=== PATIENT | female | born 2005 | race Caucasian/White ===

== ENCOUNTER 2023-01-28 13:37 | Emergency (ER) | payer OTHER, MEDICAID, SELFPAY ==
--- NOTE | ~2023-01-28 | XR_ITS ---
EXAMINATION: XR CHEST CLINICAL INFORMATION: Syncope, seizure. COMPARISON: None available. TECHNIQUE: 2 views of the chest were obtained. FINDINGS: Lungs are well-expanded and clear acute process. The heart size and pulmonary vascularity is normal. Mild dextroscoliosis. XR/XR chest 2V IMPRESSION: Unremarkable chest examination.
--- NOTE | ~2023-01-28 | CT_ITS ---
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 Coronal and sagittal reformats were obtained at the acquisition workstation. This CT examination was performed using dose optimization techniques as appropriate, variously including the following: * Automated exposure control * Adjustment of mA and/or kV according to patient size (this includes techniques or standardized protocols for targeted exams where dose is matched to indication/reason for exam; i.e. extremities or head) * Use of iterative reconstruction technique DLP: 249 mGy-cm FINDINGS: HEAD: There is no evidence of acute intracranial hemorrhage or territorial infarction. Abraham to white matter differentiation is well preserved. No abnormal mass effect or midline shift is seen. No extra-axial fluid collections are identified. No hydrocephalus. No significant volume loss. There is no abnormal attenuation within the brain parenchyma. The cerebellar tonsils are well positioned. No acute osseous or soft tissue abnormality. Visualized portions of the orbits are unremarkable. The mastoid air cells and visualized portions of the paranasal sinuses are well aerated. CERVICAL SPINE: No evidence of acute fracture or traumatic subluxation of the cervical spine. There is straightening of the normal cervical curvature with otherwise maintained sagittal alignment. Vertebral body heights and intervertebral disc spaces are maintained. The atlantoaxial and atlantooccipital articulations are intact. No prevertebral soft tissue swelling. There is no cervical lymphadenopathy. The visualized thyroid gland is unremarkable. The visualized lung apices are clear. CT/CT head/brain wo IV con IMPRESSION: No acute intracranial pathology. No acute osseous abnormality within the cervical spine.
--- NOTE | ~2023-01-28 | CT_ITS ---
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 Coronal and sagittal reformats were obtained at the acquisition workstation. This CT examination was performed using dose optimization techniques as appropriate, variously including the following: * Automated exposure control * Adjustment of mA and/or kV according to patient size (this includes techniques or standardized protocols for targeted exams where dose is matched to indication/reason for exam; i.e. extremities or head) * Use of iterative reconstruction technique DLP: 249 mGy-cm FINDINGS: HEAD: There is no evidence of acute intracranial hemorrhage or territorial infarction. Abraham to white matter differentiation is well preserved. No abnormal mass effect or midline shift is seen. No extra-axial fluid collections are identified. No hydrocephalus. No significant volume loss. There is no abnormal attenuation within the brain parenchyma. The cerebellar tonsils are well positioned. No acute osseous or soft tissue abnormality. Visualized portions of the orbits are unremarkable. The mastoid air cells and visualized portions of the paranasal sinuses are well aerated. CERVICAL SPINE: No evidence of acute fracture or traumatic subluxation of the cervical spine. There is straightening of the normal cervical curvature with otherwise maintained sagittal alignment. Vertebral body heights and intervertebral disc spaces are maintained. The atlantoaxial and atlantooccipital articulations are intact. No prevertebral soft tissue swelling. There is no cervical lymphadenopathy. The visualized thyroid gland is unremarkable. The visualized lung apices are clear. CT/CT cervical spine wo IV con IMPRESSION: No acute intracranial pathology. No acute osseous abnormality within the cervical spine.
[2023-01-28 13:49] VITALS: BP 138/80; PULSE 74; RESP 18; TEMP 36.9; O2SAT 98; BMI 19.9
--- NOTE | 2023-01-28 13:52 | ED_ITS ---
HPI - Syncope General Chief Complaint: Syncope <GABI Saul - Last Filed: 01/28/23 13:55> Stated Complaint: seizure/ faint <GABI Saul - Last Filed: 01/28/23 13:55> Time Seen by Provider: 01/28/23 17:16 <GABI Saul - Last Filed: 01/28/23 13:55> Source: patient, RN notes reviewed and old records reviewed <Eduardo Thomas - Last Filed: 01/28/23 17:25> Mode of arrival: ambulatory <Eduardo Thomas - Last Filed: 01/28/23 17:25> Limitations: no limitations <Eduardo Thomas - Last Filed: 01/28/23 17:25> History of Present Illness HPI narrative: 17-year-old female who denies any past medical history presents for evaluation of ?I fainted. ? Patient was at [employer] standing in line. She reports that she felt lightheaded and then ?passed out. ? She fell to the ground and was reportedly ?out of it for about 5 minutes. ? There was some mention of whether not there was shaking or seizure-like activity The patient reports that she has had 2 syncopal episodes in the past ?when it was hot out and was standing for long time. ? She is requesting discharge at this time and states that she feels much better <Eduardo Thomas - Last Filed: 01/28/23 17:25> Related Data Allergies/Adverse Reactions: Allergies Allergy/AdvReac Type Severity Reaction Status Date / Time No Known Allergies Allergy Verified 01/28/23 13:53 <GABI Saul - Last Filed: 01/28/23 13:55> Review of Systems Constitutional: Constitutional: Reports as per HPI, Denies chills, Denies fatigue, Denies fever(s) and Denies headache(s) <Eduardo Thomas - Last Filed: 01/28/23 17:25> ENT: Denies headache(s) <Eduardo Thomas - Last Filed: 01/28/23 17:25> Cardiovascular: Cardiovascular: Denies chest pain, Reports syncope and Denies dyspnea <Eduardo Thomas - Last Filed: 01/28/23 17:25> Respiratory: Respiratory: Denies cough and Denies dyspnea <Eduardo Thomas - Last Filed: 01/28/23 17:25> Gastrointestinal: Gastrointestinal: Denies abdominal pain, Denies constipation and Denies vomiting <Eduardo Thomas - Last Filed: 01/28/23 17:25> Genitourinary: Genitourinary: Denies dysuria <Eduardo Thomas - Last Filed: 01/28/23 17:25> Neurologic: Reports syncope, Denies headache(s) and Denies focal weakness <Eduardo Thomas - Last Filed: 01/28/23 17:25> Endocrine: Endocrine: Denies fatigue <Eduardo Thomas - Last Filed: 01/28/23 17:25> PMFSH Social History Social History: Social History Advance Directives: No Advance Directives Information Provided: No <GABI Saul - Last Filed: 01/28/23 13:55> Physical Exam Vital Signs: Vital Signs: Last Vital Signs Temp 98.4 F 01/28/23 17:19 Pulse 100 01/28/23 17:19 Resp 16 01/28/23 17:19 BP 118/64 01/28/23 17:19 Pulse Ox 98 01/28/23 17:19 O2 Del Method Room Air 01/28/23 17:19 BMI result Body Mass Index 19.9 <GABI Saul - Last Filed: 01/28/23 13:55> Vital Signs: Last Vital Signs Temp 98.4 F 01/28/23 17:19 Pulse 100 01/28/23 17:19 Resp 16 01/28/23 17:19 BP 118/64 01/28/23 17:19 Pulse Ox 98 01/28/23 17:19 O2 Del Method Room Air 01/28/23 17:19 BMI result Body Mass Index 19.9 <Eduardo Thomas - Last Filed: 01/28/23 17:25> Const: General: healthy appearing, comfortable, no acute distress, alert and awake <Eduardo Thomas - Last Filed: 01/28/23 17:25> Nutritional Appearance: well nourished <Eduardo Thomas - Last Filed: 01/28/23 17:25> Orientation/consciousness: patient oriented x3 < - Last Filed: 01/28/23 17:25> HEENT: Head: Yes normocephalic and Yes atraumatic < - Last Filed: 01/28/23 17:25> Throat: Yes posterior oropharynx normal < Last Filed: 01/28/23 17:25> Eyes: Eyelids: Yes eyelids normal < - Last Filed: 01/28/23 17:25> Conjunctivae: conjunctivae normal < - Last Filed: 01/28/23 17:25> Sclerae: sclerae normal < - Last Filed: 01/28/23 17:25> Corneas: corneas normal < - Last Filed: 01/28/23 17:25> Pupils: Equal, round and reactive pupils present < - Last Filed: 01/28/23 17:25> EOM: EOMs intact bilaterally < - Last Filed: 01/28/23 17:25> Neck: Neck: Yes full ROM < - Last Filed: 01/28/23 17:25> Resp: Effort & Inspection: normal respiratory effort, able to speak in complete sentences, no audible wheezes and not labored < Last Filed: 01/28/23 17:25> Auscultation: clear to auscultation bilaterally < - Last Filed: 01/28/23 17:25> Cardio: Rate: regular rate < - Last Filed: 01/28/23 17:25> Rhythm: regular rhythm <Eduardo [employer] - Last Filed: 01/28/23 17:25> GI: Inspection: No distended <Eduardo [employer] - Last Filed: 01/28/23 17:25> Palpation (GI): Soft to palpation, not firm, nontender, no guarding and not rigid <[employer]oy - Last Filed: 01/28/23 17:25> Auscultation: normoactive bowel sounds <[employer] - Last Filed: 01/28/23 17:25> Skin: General skin exam: no rashes or lesions noted and elasticity normal <Eduardo Thomas - Last Filed: 01/28/23 17:25> Neuro: General: patient oriented x3 <Eduardo Thomas - Last Filed: 01/28/23 17:25> Cranial nerves: Yes CN's II-XII intact bilaterally, Yes Equal, round and reactive pupils present and Yes Bilaterally intact EOM present <Eduardo Thomas - Last Filed: 01/28/23 17:25> Cognition (Neuro): normal cognition <Eduardo Thomas - Last Filed: 01/28/23 17:25> Course Course Course Narrative: BEAU-13:55PM - 17yoF with No Sig PMHx who is presenting to the ER with sister at bedside with complaints of a possible seizure and a syncopal episode that occurred prior to arrival while she was standing in line for ride at [employer] with a friend. She reports that she started getting a headache on the frontal aspect of her head a nd then all she scene was red and she woke up on the ground with her friend and the nurse that was nearby that helps her. She reports that it lasted approximately 5 minutes. She is unsure if she was shaking. She did not bite her tongue and she did not have any urinary bowel incontinence. Reports that this happened in the past although she has never been worked up for seizures although she reports that she believes she has been having seizures. She reports she continues to have a frontal headache otherwise denies any other symptoms related to this. Her last menstrual period was last month in the beginning of December she reports she is due for. Although her periods are usually regular. She does not believe she is at this time. She denies any other symptoms complaints or concerns at this time. Denies taking any medications. She reports she does not have a primary care provider Plan: Labs, EKG, chest x-ray, CT scan of brain/cervical spine and UA ordered at this time patient will be sent back to the waiting room to be evaluated in the ED. <GABI Saul - Last Filed: 01/28/23 13:55> Medical Decision Making Medical Decision Making MDM Narrative: 17-year-old female presents for evaluation of what sounds like a syncopal episode. Her vital signs are stable, workup was without any significant findings. The patient around chest pain, doubt cardiac arrhythmia. EKG is sinus rhythm with a rate of 84 beats per minute. No ST segment elevation changes. Labs are without significant abnormality. There is a very mild anemi a. Not significant enough to cause the patient's symptoms. <Eduardo Thomas - Last Filed: 01/28/23 17:25> Differential Diagnosis Anemia Syncope Seizure Seizure-like disorder Pseudo-seizure Near-syncope Dehydration Orthostasis <Eduardo Thomas - Last Filed: 01/28/23 17:25> Lab Data Result Diagrams: 01/28/23 15:01 01/28/23 15:01 <GABI Saul - Last Filed: 01/28/23 13:55> Labs: Lab Results 01/28/23 01/28/23 01/28/23 Range/Units 15:01 15:01 15:01 WBC 6.3 (4.8-10.8) X10*3/uL RBC 4.73 (4.20-5.50) X10*6/uL Hgb 11.7 L (12.0-16.0) g/dl Hct 37.6 (37.0-47.0) % MCV 79.5 L (80.0-98.0) fL MCH 24.7 L (27.0-33.0) pg MCHC 31.1 (31.0-35.0) g/dl RDW 13.8 (11.0-16.0) % Plt Count 353 (160-400) X10*3/uL MPV 10.3 (9.4-12.3) fL Immature Gran % (Auto) 0.3 (0.0-0.4) % Neut % (Auto) 71.3 (45-73) % Lymph % (Auto) 19.9 L (20-40) % [place] % (Auto) 7.9 (2-11) % Eos % (Auto) 0.3 (0-4) % Baso % (Auto) 0.3 (0-2) % Lymph # (Auto) 1.3 (1.2-4.9) X10*3/uL [place] # (Auto) 0.5 (0.1-1.2) X10*3/uL Eos # (Auto) 0.0 (0.0-0.4) X10*3/uL Baso # (Auto) 0.0 (0.0-0.2) X10*3/uL Abs Immat Gran (auto) 0.02 (0.00-0.03) X10*3/uL Absolute Neuts (auto) 4.5 (2.0-8.3) x10*3/uL Absolute Nucleated RBC 0.000 (0.0-0.012) X10*3/uL Nucleated RBC % (auto) 0.0 (0.0-0.2) /100WBC PT 14.1 H (10.0-13.1) SEC INR 1.2 H (0.9-1.1) Sodium 140 (135-145) mmol/L Potassium 4.1 (3.3-5.1) mmol/L Chloride 105 (96-108) mmol/L Carbon Dioxide 24 (22-29) mmol/L Anion Gap 15 (12-20) BUN 7 L (9-16) mg/dL Creatinine 0.73 (0.5-1.4) mg/dL Estim Creat Clear Calc 96.6 Estimated GFR > 60 Random Glucose 76 (60-115) mg/dL Calcium 9.4 (8.4-10.2) mg/dL Magnesium 1.9 (1.6-2.6) mg/dL Total Bilirubin 1.1 H (0.0-1.0) mg/dL AST 15 (5-31) U/L ALT 9 (0-31) U/L Alkaline Phosphatase 63 (39-117) U/L Troponin I High Sens (<3.5-17.0) ng/L Total Protein 7.3 (6.5-8.0) g/dL Albumin 4.5 (3.5-5.0) g/dL Lipase 35 (8-78) U/L Beta HCG, Quant mIU/mL Urine Color Urine Appearance Urine pH (5.0-9.0) Ur Specific [place] (1.005-1.025) Urine Protein (Neg-Trace) mg/dL Urine Glucose (UA) (Negative) mg/dL Urine Ketones (Negative) mg/dL Urine Blood (Negative) Urine Nitrite (Negative) Ur Leukocyte Esterase (Negative) Urine Opiates Screen (Not Detect) Urine Fentanyl Screen (Not Detect) Ur Barbiturates Screen (Not Detect) Ur Phencyclidine Scrn (Not Detect) Ur Amphetamines Screen (Not Detect) U Benzodiazepines Scrn (Not Detect) Urine Cocaine Screen (Not Detect) U Marijuana (THC) Screen (Not Detect) Ethyl Alcohol < 10 mg/dL Influenza Type A (PCR) (Negative) Influenza Type B (PCR) (Negative) RSV RNA Qual (PCR) (Negative) SARS-CoV-2 RNA (RT-PCR) (Negative) 01/28/23 01/28/23 01/28/23 Range/Units 15:01 15:01 15:01 WBC (4.8-10.8) X10*3/uL RBC (4.20-5.50) X10*6/uL Hgb (12.0-16.0) g/dl Hct (37.0-47.0) % MCV (80.0-98.0) fL MCH (27.0-33.0) pg MCHC (31.0-35.0) g/dl RDW (11.0-16.0) % Plt Count (160-400) X10*3/uL MPV (9.4-12.3) fL Immature Gran % (Auto) (0.0-0.4) % Neut % (Auto) (45-73) % Lymph % (Auto) (20-40) % [place] % (Auto) (2-11) % Eos % (Auto) (0-4) % Baso % (Auto) (0-2) % Lymph # (Auto) (1.2-4.9) X10*3/uL [place] # (Auto) (0.1-1.2) X10*3/uL Eos # (Auto) (0.0-0.4) X10*3/uL Baso # (Auto) (0.0-0.2) X10*3/uL Abs Immat Gran (auto) (0.00-0.03) X10*3/uL Absolute Neuts (auto) (2.0-8.3) x10*3/uL Absolute Nucleated RBC (0.0-0.012) X10*3/uL Nucleated RBC % (auto) (0.0-0.2) /100WBC PT (10.0-13.1) SEC INR (0.9-1.1) Sodium (135-145) mmol/L Potassium (3.3-5.1) mmol/L Chloride (96-108) mmol/L Carbon Dioxide (22-29) mmol/L Anion Gap (12-20) BUN (9-16) mg/dL Creatinine (0.5-1.4) mg/dL Estim Creat Clear Calc Estimated GFR Random Glucose (60-115) mg/dL Calcium (8.4-10.2) mg/dL Magnesium (1.6-2.6) mg/dL Total Bilirubin (0.0-1.0) mg/dL AST (5-31) U/L ALT (0-31) U/L Alkaline Phosphatase (39-117) U/L Troponin I High Sens < 2.7 (<3.5-17.0) ng/L Total Protein (6.5-8.0) g/dL Albumin (3.5-5.0) g/dL Lipase (8-78) U/L Beta HCG, Quant < 2 mIU/mL Urine Color Urine Appearance Urine pH (5.0-9.0) Ur Specific [place] (1.005-1.025) Urine Protein (Neg-Trace) mg/dL Urine Glucose (UA) (Negative) mg/dL Urine Ketones (Negative) mg/dL Urine Blood (Negative) Urine Nitrite (Negative) Ur Leukocyte Esterase (Negative) Urine Opiates Screen (Not Detect) Urine Fentanyl Screen (Not Detect) Ur Barbiturates Screen (Not Detect) Ur Phencyclidine Scrn (Not Detect) Ur Amphetamines Screen (Not Detect) U Benzodiazepines Scrn (Not Detect) Urine Cocaine Screen (Not Detect) U Marijuana (THC) Screen (Not Detect) Ethyl Alcohol mg/dL Influenza Type A (PCR) NEGATIVE (Negative) Influenza Type B (PCR) NEGATIVE (Negative) RSV RNA Qual (PCR) NEGATIVE (Negative) SARS-CoV-2 RNA (RT-PCR) NEGATIVE (Negative) 01/28/23 01/28/23 Range/Units 15:01 15:01 WBC (4.8-10.8) X10*3/uL RBC (4.20-5.50) X10*6/uL Hgb (12.0-16.0) g/dl Hct (37.0-47.0) % MCV (80.0-98.0) fL MCH (27.0-33.0) pg MCHC (31.0-35.0) g/dl RDW (11.0-16.0) % Plt Count (160-400) X10*3/uL MPV (9.4-12.3) fL Immature Gran % (Auto) (0.0-0.4) % Neut % (Auto) (45-73) % Lymph % (Auto) (20-40) % [place] % (Auto) (2-11) % Eos % (Auto) (0-4) % Baso % (Auto) (0-2) % Lymph # (Auto) (1.2-4.9) X10*3/uL [place] # (Auto) (0.1-1.2) X10*3/uL Eos # (Auto) (0.0-0.4) X10*3/uL Baso # (Auto) (0.0-0.2) X10*3/uL Abs Immat Gran (auto) (0.00-0.03) X10*3/uL Absolute Neuts (auto) (2.0-8.3) x10*3/uL Absolute Nucleated RBC (0.0-0.012) X10*3/uL Nucleated RBC % (auto) (0.0-0.2) /100WBC PT (10.0-13.1) SEC INR (0.9-1.1) Sodium (135-145) mmol/L Potassium (3.3-5.1) mmol/L Chloride (96-108) mmol/L Carbon Dioxide (22-29) mmol/L Anion Gap (12-20) BUN (9-16) mg/dL Creatinine (0.5-1.4) mg/dL Estim Creat Clear Calc Estimated GFR Random Glucose (60-115) mg/dL Calcium (8.4-10.2) mg/dL Magnesium (1.6-2.6) mg/dL Total Bilirubin (0.0-1.0) mg/dL AST (5-31) U/L ALT (0-31) U/L Alkaline Phosphatase (39-117) U/L Troponin I High Sens (<3.5-17.0) ng/L Total Protein (6.5-8.0) g/dL Albumin (3.5-5.0) g/dL Lipase (8-78) U/L Beta HCG, Quant mIU/mL Urine Color Yellow Urine Appearance Clear Urine pH 8.0 (5.0-9.0) Ur Specific [place] 1.010 (1.005-1.025) Urine Protein Trace (Neg-Trace) mg/dL Urine Glucose (UA) Negative (Negative) mg/dL Urine Ketones Negative (Negative) mg/dL Urine Blood Negative (Negative) Urine Nitrite Negative (Negative) Ur Leukocyte Esterase Negative (Negative) Urine Opiates Screen Not Detected (Not Detect) Urine Fentanyl Screen Not Detected (Not Detect) Ur Barbiturates Screen Not Detected (Not Detect) Ur Phencyclidine Scrn Not Detected (Not Detect) Ur Amphetamines Screen Not Detected (Not Detect) U Benzodiazepines Scrn Not Detected (Not Detect) Urine Cocaine Screen Not Detected (Not Detect) U Marijuana (THC) Screen POSITIVE H (Not Detect) Ethyl Alcohol mg/dL Influenza Type A (PCR) (Negative) Influenza Type B (PCR) (Negative) RSV RNA Qual (PCR) (Negative) SARS-CoV-2 RNA (RT-PCR) (Negative) <GABI Saul - Last Filed: 01/28/23 13:55> Lab Results 01/28/23 01/28/23 01/28/23 Range/Units 15:01 15:01 15:01 WBC 6.3 (4.8-10.8) X10*3/uL RBC 4.73 (4.20-5.50) X10*6/uL Hgb 11.7 L (12.0-16.0) g/dl Hct 37.6 (37.0-47.0) % MCV 79.5 L (80.0-98.0) fL MCH 24.7 L (27.0-33.0) pg MCHC 31.1 (31.0-35.0) g/dl RDW 13.8 (11.0-16.0) % Plt Count 353 (160-400) X10*3/uL MPV 10.3 (9.4-12.3) fL Immature Gran % (Auto) 0.3 (0.0-0.4) % Neut % (Auto) 71.3 (45-73) % Lymph % (Auto) 19.9 L (20-40) % [place] % (Auto) 7.9 (2-11) % Eos % (Auto) 0.3 (0-4) % Baso % (Auto) 0.3 (0-2) % Lymph # (Auto) 1.3 (1.2-4.9) X10*3/uL [place] # (Auto) 0.5 (0.1-1.2) X10*3/uL Eos # (Auto) 0.0 (0.0-0.4) X10*3/uL Baso # (Auto) 0.0 (0.0-0.2) X10*3/uL Abs Immat Gran (auto) 0.02 (0.00-0.03) X10*3/uL Absolute Neuts (auto) 4.5 (2.0-8.3) x10*3/uL Absolute Nucleated RBC 0.000 (0.0-0.012) X10*3/uL Nucleated RBC % (auto) 0.0 (0.0-0.2) /100WBC PT 14.1 H (10.0-13.1) SEC INR 1.2 H (0.9-1.1) Sodium 140 (135-145) mmol/L Potassium 4.1 (3.3-5.1) mmol/L Chloride 105 (96-108) mmol/L Carbon Dioxide 24 (22-29) mmol/L Anion Gap 15 (12-20) BUN 7 L (9-16) mg/dL Creatinine 0.73 (0.5-1.4) mg/dL Estim Creat Clear Calc 96.6 Estimated GFR > 60 Random Glucose 76 (60-115) mg/dL Calcium 9.4 (8.4-10.2) mg/dL Magnesium 1.9 (1.6-2.6) mg/dL Total Bilirubin 1.1 H (0.0-1.0) mg/dL AST 15 (5-31) U/L ALT 9 (0-31) U/L Alkaline Phosphatase 63 (39-117) U/L Troponin I High Sens (<3.5-17.0) ng/L Total Protein 7.3 (6.5-8.0) g/dL Albumin 4.5 (3.5-5.0) g/dL Lipase 35 (8-78) U/L Beta HCG, Quant mIU/mL Urine Color Urine Appearance Urine pH (5.0-9.0) Ur Specific [place] (1.005-1.025) Urine Protein (Neg-Trace) mg/dL Urine Glucose (UA) (Negative) mg/dL Urine Ketones (Negative) mg/dL Urine Blood (Negative) Urine Nitrite (Negative) Ur Leukocyte Esterase (Negative) Urine Opiates Screen (Not Detect) Urine Fentanyl Screen (Not Detect) Ur Barbiturates Screen (Not Detect) Ur Phencyclidine Scrn (Not Detect) Ur Amphetamines Screen (Not Detect) U Benzodiazepines Scrn (Not Detect) Urine Cocaine Screen (Not Detect) U Marijuana (THC) Screen (Not Detect) Ethyl Alcohol < 10 mg/dL Influenza Type A (PCR) (Negative) Influenza Type B (PCR) (Negative) RSV RNA Qual (PCR) (Negative) SARS-CoV-2 RNA (RT-PCR) (Negative) 01/28/23 01/28/23 01/28/23 Range/Units 15:01 15:01 15:01 WBC (4.8-10.8) X10*3/uL RBC (4.20-5.50) X10*6/uL Hgb (12.0-16.0) g/dl Hct (37.0-47.0) % MCV (80.0-98.0) fL MCH (27.0-33.0) pg MCHC (31.0-35.0) g/dl RDW (11.0-16.0) % Plt Count (160-400) X10*3/uL MPV (9.4-12.3) fL Immature Gran % (Auto) (0.0-0.4) % Neut % (Auto) (45-73) % Lymph % (Auto) (20-40) % [place] % (Auto) (2-11) % Eos % (Auto) (0-4) % Baso % (Auto) (0-2) % Lymph # (Auto) (1.2-4.9) X10*3/uL [place] # (Auto) (0.1-1.2) X10*3/uL Eos # (Auto) (0.0-0.4) X10*3/uL Baso # (Auto) (0.0-0.2) X10*3/uL Abs Immat Gran (auto) (0.00-0.03) X10*3/uL Absolute Neuts (auto) (2.0-8.3) x10*3/uL Absolute Nucleated RBC (0.0-0.012) X10*3/uL Nucleated RBC % (auto) (0.0-0.2) /100WBC PT (10.0-13.1) SEC INR (0.9-1.1) Sodium (135-145) mmol/L Potassium (3.3-5.1) mmol/L Chloride (96-108) mmol/L Carbon Dioxide (22-29) mmol/L Anion Gap (12-20) BUN (9-16) mg/dL Creatinine (0.5-1.4) mg/dL Estim Creat Clear Calc Estimated GFR Random Glucose (60-115) mg/dL Calcium (8.4-10.2) mg/dL Magnesium (1.6-2.6) mg/dL Total Bilirubin (0.0-1.0) mg/dL AST (5-31) U/L ALT (0-31) U/L Alkaline Phosphatase (39-117) U/L Troponin I High Sens < 2.7 (<3.5-17.0) ng/L Total Protein (6.5-8.0) g/dL Albumin (3.5-5.0) g/dL Lipase (8-78) U/L Beta HCG, Quant < 2 mIU/mL Urine Color Urine Appearance Urine pH (5.0-9.0) Ur Specific [place] (1.005-1.025) Urine Protein (Neg-Trace) mg/dL Urine Glucose (UA) (Negative) mg/dL Urine Ketones (Negative) mg/dL Urine Blood (Negative) Urine Nitrite (Negative) Ur Leukocyte Esterase (Negative) Urine Opiates Screen (Not Detect) Urine Fentanyl Screen (Not Detect) Ur Barbiturates Screen (Not Detect) Ur Phencyclidine Scrn (Not Detect) Ur Amphetamines Screen (Not Detect) U Benzodiazepines Scrn (Not Detect) Urine Cocaine Screen (Not Detect) U Marijuana (THC) Screen (Not Detect) Ethyl Alcohol mg/dL Influenza Type A (PCR) NEGATIVE (Negative) Influenza Type B (PCR) NEGATIVE (Negative) RSV RNA Qual (PCR) NEGATIVE (Negative) SARS-CoV-2 RNA (RT-PCR) NEGATIVE (Negative) 01/28/23 01/28/23 Range/Units 15:01 15:01 WBC (4.8-10.8) X10*3/uL RBC (4.20-5.50) X10*6/uL Hgb (12.0-16.0) g/dl Hct (37.0-47.0) % MCV (80.0-98.0) fL MCH (27.0-33.0) pg MCHC (31.0-35.0) g/dl RDW (11.0-16.0) % Plt Count (160-400) X10*3/uL MPV (9.4-12.3) fL Immature Gran % (Auto) (0.0-0.4) % Neut % (Auto) (45-73) % Lymph % (Auto) (20-40) % [place] % (Auto) (2-11) % Eos % (Auto) (0-4) % Baso % (Auto) (0-2) % Lymph # (Auto) (1.2-4.9) X10*3/uL [place] # (Auto) (0.1-1.2) X10*3/uL Eos # (Auto) (0.0-0.4) X10*3/uL Baso # (Auto) (0.0-0.2) X10*3/uL Abs Immat Gran (auto) (0.00-0.03) X10*3/uL Absolute Neuts (auto) (2.0-8.3) x10*3/uL Absolute Nucleated RBC (0.0-0.012) X10*3/uL Nucleated RBC % (auto) (0.0-0.2) /100WBC PT (10.0-13.1) SEC INR (0.9-1.1) Sodium (135-145) mmol/L Potassium (3.3-5.1) mmol/L Chloride (96-108) mmol/L Carbon Dioxide (22-29) mmol/L Anion Gap (12-20) BUN (9-16) mg/dL Creatinine (0.5-1.4) mg/dL Estim Creat Clear Calc Estimated GFR Random Glucose (60-115) mg/dL Calcium (8.4-10.2) mg/dL Magnesium (1.6-2.6) mg/dL Total Bilirubin (0.0-1.0) mg/dL AST (5-31) U/L ALT (0-31) U/L Alkaline Phosphatase (39-117) U/L Troponin I High Sens (<3.5-17.0) ng/L Total Protein (6.5-8.0) g/dL Albumin (3.5-5.0) g/dL Lipase (8-78) U/L Beta HCG, Quant mIU/mL Urine Color Yellow Urine Appearance Clear Urine pH 8.0 (5.0-9.0) Ur Specific [place] 1.010 (1.005-1.025) Urine Protein Trace (Neg-Trace) mg/dL Urine Glucose (UA) Negative (Negative) mg/dL Urine Ketones Negative (Negative) mg/dL Urine Blood Negative (Negative) Urine Nitrite Negative (Negative) Ur Leukocyte Esterase Negative (Negative) Urine Opiates Screen Not Detected (Not Detect) Urine Fentanyl Screen Not Detected (Not Detect) Ur Barbiturates Screen Not Detected (Not Detect) Ur Phencyclidine Scrn Not Detected (Not Detect) Ur Amphetamines Screen Not Detected (Not Detect) U Benzodiazepines Scrn Not Detected (Not Detect) Urine Cocaine Screen Not Detected (Not Detect) U Marijuana (THC) Screen POSITIVE H (Not Detect) Ethyl Alcohol mg/dL Influenza Type A (PCR) (Negative) Influenza Type B (PCR) (Negative) RSV RNA Qual (PCR) (Negative) SARS-CoV-2 RNA (RT-PCR) (Negative) <Eduardo Thomas - Last Filed: 01/28/23 17:25> Discharge Plan Discharge Clinical Impression: Syncope <GABI Saul - Last Filed: 01/28/23 13:55> Patient Disposition: Home, Self-Care <GABI Saul - Last Filed: 01/28/23 13:55> Instructions: Syncope (ED) <GABI Saul Last Filed: 01/28/23 13:55> Additional Instructions: Stay well hydrated. Follow-up with a primary doctor You may follow-up with Cardiology, Dr. Weaver for any further episodes of passing ouit <GABI Saul - Last Filed: 01/28/23 13:55> Referrals: Paresh Weaver MD [Physician] - <GABI Saul - Last Filed: 01/28/23 13:55>
--- NOTE | 2023-01-28 13:52 | ECG_ITS ---
Test Reason : weakness Blood Pressure : / mmHG Vent. Rate : 084 BPM Atrial Rate : 084 BPM P-R Int : 150 ms QRS Dur : 074 ms QT Int : 358 ms P-R-T Axes : 079 071 061 degrees QTc Int : 423 ms Normal sinus rhythm Normal ECG No previous ECGs available Referred By: Camila Arauz Electronically Signed By:SANIYA PEREZ
[2023-01-28 15:12] LABS: MANUAL DIFF FLAG NO
[2023-01-28 15:13] LABS: Basophils Percent Auto 0.3 % (0-2); Eosinophils Percent Auto 0.3 % (0-4); Hematocrit 37.6 % (37.0-47.0); Hemoglobin 11.7 g/dl (12.0-16.0); Imm Gran Abs Auto 0.02 X10*3/uL (0.00-0.03); Imm Gran Pct Auto 0.3 % (0.0-0.4); Lymphocytes Absolute Auto 1.3 X10*3/uL (1.2-4.9); Lymphocytes Percent Auto 19.9 % (20-40); Mean Corpuscular HGB Conc 31.1 g/dl (31.0-35.0); Mean Corpuscular Hemoglobin 24.7 pg (27.0-33.0); Mean Corpuscular Volume 79.5 fL (80.0-98.0); Mean Platelet Volume 10.3 fL (9.4-12.3); Monocytes Absolute Auto 0.5 X10*3/uL (0.1-1.2); Monocytes Percent Auto 7.9 % (2-11); Neutrophils Absolute Auto 4.5 x10*3/uL (2.0-8.3); Neutrophils Percent Auto 71.3 % (45-73); Platelet Count 353 X10*3/uL (160-400); Red Blood Count 4.73 X10*6/uL (4.20-5.50); Red Cell Distribution Width 13.8 % (11.0-16.0); White Blood Count 6.3 X10*3/uL (4.8-10.8)
[2023-01-28 15:15] LABS: Appearance Urine Clear; Color Urine Yellow; Glucose Urine UA Negative (Negative); Leukocyte Esterase Urine Negative (Negative); Nitrite Urine Negative (Negative); Urine Blood Negative (Negative); Urine Ketones Negative (Negative); Urine Protein Trace mg/dL (Neg-Trace)
[2023-01-28 15:18] LABS: INTERNATIONAL NORM RATIO 1.2 (0.9-1.1); Prothrombin Time 14.1 SEC (10.0-13.1)
[2023-01-28 15:23] LABS: Amphetamine Screen Urine Not Detected (Not Detect); Barbiturates, Urine Not Detected (Not Detect); Benzodiazepines Screen Urine Not Detected (Not Detect); Cannabinoid Screen Urine POSITIVE (Not Detect); Cocaine Screen Urine Not Detected (Not Detect); Fentanyl, urine Not Detected (Not Detect); Opiate Screen Urine Not Detected (Not Detect); Phencyclidine Screen Urine Not Detected (Not Detect)
[2023-01-28 15:29] LABS: Anion Gap 15 (12-20); Blood Urea Nitrogen 7 mg/dL (9-16); Calcium 9.4 mg/dL (8.4-10.2); Carbon Dioxide 24 mmol/L (22-29); Chloride 105 mmol/L (96-108); Creatinine Clr Calc Pharmacy 96.6; Estimated Glomerular Filt Rate > 60; Glucose Random 76 mg/dL (60-115); Potassium 4.1 mmol/L (3.3-5.1); Sodium 140 mmol/L (135-145)
[2023-01-28 15:30] LABS: Alanine Aminotransferase 9 U/L (0-31); Albumin Level 4.5 g/dL (3.5-5.0); Alkaline Phosphatase 63 U/L (39-117); Aspartate Amino Transferase 15 U/L (5-31); Bilirubin Total 1.1 mg/dL (0.0-1.0); Ethanol < 10 mg/dL; Lipase 35 U/L (8-78); Magnesium 1.9 mg/dL (1.6-2.6); Total Protein 7.3 g/dL (6.5-8.0)
[2023-01-28 15:34] LABS: HCG Quantitative < 2 mIU/mL
[2023-01-28 15:35] LABS: Troponin-I High Sensitivity < 2.7 ng/L (<3.5-17.0)
[2023-01-28 15:50] LABS: Influenza A PCR NEGATIVE (Negative); Influenza B PCR NEGATIVE (Negative); Resp Syncy Virus RNA Qual PCR NEGATIVE (Negative); SARS COV2 PCR INHOUSE NEGATIVE (Negative)
--- OUTSIDE RECORDS SUMMARY | 2023-01-28 17:07 | XMS_ITS | Continuity of Care Document ---
Author Name Unknown Organization [facility] Address [address] [place] [id number]- Care Team Providers Care Food Processor Name Role Phone Neetu CID, Phantidla Primary Care Physici an Encounter [facility] Date(s): 03/29/20 - 04/28/20 [facility] [address] [place] [phone]- Attending Physician: Admtr, Ar8 Allergies, Adverse Reactions, Alerts Substance Reaction Severity Status NKA Active Immunizations Given and Recorded Vaccine Date Status Refusal Reason Meningococcal Conjugate Vaccine 1 03/29/20 Given Meningococcal Conjugate Vaccine 09/14/15 Given influenza virus vaccine, inactivated 2 09/03/17 Gi michel influenza virus vaccine, inactivated 09/29/16 Give n influenza virus vaccine, inactivated 08/12/15 Give n influenza virus vaccine, inactivated 08/26/14 Give n influenza virus vaccine, inactivated 12/15/10 Give n influenza virus vaccine, inactivated 3 10/02/07 Gi michel influenza virus vaccine, inactivated 09/18/06 Give n Human Papillomavirus Vaccine 4 09/03/17 Given Human Papillomavirus Vaccine 09/29/16 Given Hepatitis A Pediatric Vaccine 09/29/16 Given Hepatitis A Pediatric Vaccine 09/14/15 Given tetanus/diphtheria/pertussis, acel(Tdap) 09/14/15 Given influ virus vac, H1N1, live(oldterm) 5 10/21/09 Gi michel Influenza Virus Vaccine (oldterm) 6 10/12/08 Given Poliovirus Vaccine, Inactivated 10/02/07 Given Poliovirus Vaccine, Inactivated 11/06/06 Given Poliovirus Vaccine, Inactivated 03/10/04 Given Poliovirus Vaccine, Inactivated 03 Given Diphth/Pertussis,Acel/Tetanus (oldterm) 10/02/07 G iven Diphth/Pertussis,Acel/Tetanus (oldterm) 12/02/04 G iven Diphth/Pertussis,Acel/Tetanus (oldterm) 03/10/04 G iven Diphth/Pertussis,Acel/Tetanus (oldterm) 03 G iven Diphth/Pertussis,Acel/Tetanus (oldterm) 03 G iven Varicella Virus Vaccine 10/02/07 Given Varicella Virus Vaccine 09/19/04 Given Measles/Mumps/Rubella Virus Vaccine 10/02/07 Given Measles/Mumps/Rubella Virus Vaccine 09/19/04 Given Pneumococcal Conjugate (PCV7) (oldterm) 12/02/04 G iven Pneumococcal Conjugate (PCV7) (oldterm) 03 G iven Pneumococcal Conjugate (PCV7) (oldterm) 03 G iven Haemophilus B Conj Vaccine (oldterm) 12/02/04 Give n Haemophilus B Conj Vaccine (oldterm) 03/10/04 Give n Haemophilus B Conj Vaccine (oldterm) 03 Give n Haemophilus B Conj Vaccine (oldterm) 03 Give n Hepatitis B Vaccine (old term) 03/10/04 Given Hepatitis B Vaccine (old term) 03 Given Hepatitis B Vaccine (old term) 03 Given 1Result Comment: [id number] 2Result Comment: [id number] 3Admin Note: SANOFI 4Result Comment: [id number] 5Admin Note: vis given 6Admin Note: SANOFI PASTEUR VIS GIVEN TODAY Problem List Condition Effective Dates Status Health Status Inform ant Well child(Confirmed) Active Social History Social History Type Response Smoking Status Never smoker; Tobacc o user in household: No entered on: 01/21/18 Sex
--- OUTSIDE RECORDS SUMMARY | 2023-01-28 17:07 | XMS_ITS | Continuity of Care Document ---
Author Name Unknown Organization 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 [address] [place] [phone]- Allergies, Adverse Reactions, Alerts Substance Reaction Severity Status NKA Active Immunizations Given and Recorded Vaccine Date Status Refusal Reason influenza virus vaccine, inactivated 1 07/04/21 Gi michel influenza virus vaccine, inactivated 2 09/03/17 Gi michel influenza virus vaccine, inactivated 09/29/16 Give n influenza virus vaccine, inactivated 08/12/15 Give n influenza virus vaccine, inactivated 08/26/14 Give n influenza virus vaccine, inactivated 12/15/10 Give n influenza virus vaccine, inactivated 3 10/02/07 Gi michel influenza virus vaccine, inactivated 09/18/06 Give n Meningococcal Conjugate Vaccine 4 03/29/20 Given Meningococcal Conjugate Vaccine 09/14/15 Given Human Papillomavirus Vaccine 5 09/03/17 Given Human Papillomavirus Vaccine 09/29/16 Given Hepatitis A Pediatric Vaccine 09/29/16 Given Hepatitis A Pediatric Vaccine 09/14/15 Given tetanus/diphtheria/pertussis, acel(Tdap) 09/14/15 Given influ virus vac, H1N1, live(oldterm) 6 10/21/09 Gi michel Influenza Virus Vaccine (oldterm) 7 10/12/08 Given Poliovirus Vaccine, Inactivated 10/02/07 Given [...] Vaccine (old term) 03 Given 1Result Comment: [id number] 2Result Comment: [id number] 3Admin Note: SANOFI 4Result Comment: [id number] 5Result Comment: [id number] 6Admin Note: vis given 7Admin Note: SANOFI PASTEUR VIS GIVEN TODAY Problem List Condition Effective Dates Status Health Status Inform ant Well child(Confirmed) Active Social History Social History Type Response Smoking Status Never smoker; Tobacc o user in household: No entered on: 01/21/18 Sex
--- OUTSIDE RECORDS SUMMARY | 2023-01-28 17:07 | XMS_ITS | Continuity of Care Document ---
Author Name Unknown Organization [facility] Address [address] [place] [address]- Care Team Providers Care Inspector Poising Name Role Phone Neetu CID, Kathleen Primary Care Physici an Encounter [facility] Date(s): 07/04/21 - 08/03/21 [facility] [address] [place] [phone]- Attending Physician: Admtr, Ar8 Allergies, Adverse Reactions, [...] Vaccine (old term) 03 Given 1Result Comment: [id number] 2Result Comment: [id number] 3Admin Note: SANOFI 4Result Comment: [id number] 5Result Comment: [id number] 6Admin Note: vis given 7Admin Note: SANOFI PASTEUR VIS GIVEN TODAY Problem List Condition Effective Dates Status Health Status Inform ant Well child(Confirmed) Active Social History Social History Type Response Smoking Status Never smoker; Tobacc o user in household: No entered on: 01/21/18 Sex
[2023-01-28 17:19] VITALS: BP 118/64; PULSE 100; RESP 16; TEMP 36.9; O2SAT 98
== END 2023-01-28 18:03 | disposition home or self-care (01) ==
PROVIDERS: Physician Assistant Medical; Emergency Provider Internal Medicine
DX: R55 Syncope and collapse (principal); R51.9 Headache, unspecified; R56.9 Unspecified convulsions; Z20.822 Contact with and (suspected) exposure to COVID-19; Z20.828 Contact with and (suspected) exposure to other viral communicable diseases; Z79.899 Other long term (current) drug therapy
CPT/HCPCS: 0241U; 36415; 70450; 71046; 72125; 80053; 80307; 81003; 82077; 83690; 83735; 84484; 84702; 85025; 85610; 93005; 99284